=== PATIENT | female | born 1945 | race Caucasian/White ===

== ENCOUNTER 2020-04-22 09:32 | Observation (INO) | payer MEDICARE, OTHER ==
[~2020-04-22] VITALS: Ht 162.5 cm; Wt 56.7 kg
--- OUTSIDE RECORDS SUMMARY | 2020-04-22 09:37 | XMS REPORT | Continuity of Care Document ---
Author Organization Unknown Address Unknown Phone Unavailable Allergies There is no data. Medications There is no data. Problems There is no data. Procedures There is no data. Results Test Result Range VITAMIN D, 25-H - 08/03/19 10:20 VITAMIN D,25-OH,TOTAL,IA 75 ng/mL 30-10 0 Encounters ACCT No. Visit Date/Time Discharge Status Pt. Type Provider Facility Loc./Unit Complaint [id number] 01/06/2019 14:40:00 01/06/2019 23:59: 59 [facility] [id number] 08/03/2019 10:00:00 Document Registration
[2020-04-22] MEDS ORDERED: ONDANSETRON 4 MG (ZOFRAN) ORAL DISSOLVE TAB ONE (10:01)
[2020-04-22] MEDS ORDERED: NS IV 500 ML 500 ML IV ONE (10:23)
[2020-04-22 10:39] LABS: BASOPHILS % (AUTO) 0 % (0-10); EOSINOPHILS % (AUTO) 0 % (0-10); HEMATOCRIT 43 % (35-52); HEMOGLOBIN 14.1 G/DL (11.5-16.0); LYMPHOCYTES # (AUTO) 0.8 X 10^3 (1.0-4.0); LYMPHOCYTES % (AUTO) 9 % (12-44); MEAN CORPUSCULAR HEMOGLOBIN 29 PG (25-34); MEAN CORPUSCULAR HGB CONC 33 G/DL (32-36); MEAN CORPUSCULAR VOLUME 88 FL (80-99); MEAN PLATELET VOLUME 10.3 FL (7.4-10.4); MONOCYTES # (AUTO) 0.2 X 10^3 (0.0-1.0); MONOCYTES % (AUTO) 2 % (0-12); NEUTROPHILS # (AUTO) 8.4 X 10^3 (1.8-7.8); NEUTROPHILS % (AUTO) 89 % (42-75); PLATELET COUNT 316 10^3/uL (130-400); RED CELL DISTRIBUTION WIDTH 14.8 % (10.0-14.5); WHITE BLOOD COUNT 9.5 10^3/uL (4.3-11.0)
--- NOTE | 2020-04-22 10:45 | ED General ---
General Chief Complaint: Dizziness/Syncope Stated Complaint: DIZZY Nursing Triage Note: PT TO RM 5 WITH COMPLAINT OF DIZZINESS, NAUSEA, AND ROOM SPINNING THAT STARTED THIS MORNING. Nursing Sepsis Screen: No Definite Risk Source of Information: Patient Exam Limitations: No Limitations History of Present Illness Date Seen by Provider: April 22, 2020 Time Seen by Provider: 09:51 Initial Comments This 74-year-old woman presents to the emergency room with complaints of a vertiginous dizziness with nausea and vomiting 1 upon waking up this morning. Symptoms seem to be worse at home than they are now. She describes some slight disequilibrium. Symptoms do not seem to be worse with position changes or turning her head. She has never had symptoms like this in the past. She is notably hypertensive with systolic blood pressures in the 170s. She has been able to ambulate independently. She denies any focal neurologic deficits. She describes "just not feeling right". She denies any recent illnesses or symptoms such as cough, congestion, fever, etc. She has a history of traumatic brain injury and skull fracture about 9 years ago. Allergies and Home Medications Allergies Coded Allergies: No Known Drug Allergies (Unverified , 04/22/20) Patient Home Medication List Home Medication List Reviewed: Yes Review of Systems Review of Systems Constitutional: no symptoms reported EENTM: no symptoms reported Respiratory: no symptoms reported Cardiovascular: see HPI Gastrointestinal: see HPI Genitourinary: no symptoms reported : No Musculoskeletal: no symptoms reported Skin: no symptoms reported Psychiatric/Neurological: See HPI Hematologic/Lymphatic: No Symptoms Reported Immunological/Allergic: no symptoms reported Past Dzysurz-Wqyrzc-Ssnvsy Hx Past Med/Social Hx: Reviewed Nursing Past Med/Soc Hx Patient Social History Alcohol Use: Denies Use Recreational Drug Use: No Smoking Status: Never a Smoker Recent Foreign Travel: No Contact w/Someone Who Travel: No Recent Infectious Disease Expo: No Recent Hopitalizations: No Immunizations Up To Date Tetanus Booster (TDap): Unknown PED Vaccines UTD: Yes Seasonal Allergies Seasonal Allergies: No Past Medical History Surgeries: No Respiratory: No Cardiac: No Neurological: Yes Traumatic Brain Injury Genitourinary: No Gastrointestinal: No Musculoskeletal: No Endocrine: No HEENT: No Cancer: No Psychosocial: No Integumentary: No Blood Disorders: No Physical Exam Vital Signs Vital Signs - First Documented 04/22/20 09:47 Temp 36.4 Pulse 75 Resp 16 B/P (MAP) 171/94 (119) Pulse Ox 99 O2 Delivery Room Air Capillary Refill : Less Than 3 Seconds Height, Weight, BMI Height: '" Weight: lbs. oz. kg; 21.00 BMI Method: General Appearance: No Apparent Distress, WD/WN HEENT: PERRL/EOMI, TMs Normal, Normal ENT Inspection, Pharynx Normal Neck: Normal Inspection Respiratory: Lungs Clear, Normal Breath Sounds, No Accessory Muscle Use, No Respiratory Distress Cardiovascular: Regular Rate, Rhythm, No Edema, No Murmur Extremity: Normal Inspection, Non Tender, No Pedal Edema Neurologic/Psychiatric: Alert, Oriented x3, No Motor/Sensory Deficits, Normal Mood/Affect, lap winder II-XII Norm as Tested, Other (normal gait with ambulation. Reports some mild disequilibrium with ambulation. Normal finger to nose and heel to olea. Very slight nystagmus with left sided gaze. Bryce-Hallpike negative.) Skin: Normal Color, Warm/Dry Progress/Results/Core Measures Suspected Sepsis Recent Fever Within 48 Hours: No Infection Criteria Present: None New/Unexplained Altered Menta: No Sepsis Screen: No Definite Risk SIRS Temperature: Pulse: 75 Respiratory Rate: 16 Laboratory Tests 04/22/20 10:30: White Blood Count 9.5 Blood Pressure 171 /94 Mean: 119 Laboratory Tests 04/22/20 10:30: Creatinine 0.83, Platelet Count 316, Total Bilirubin 0.3 Results/Orders Lab Results Laboratory Tests Test 04/22/20 10:30 04/22/20 11:59 Range/Units White Blood Count 9.5 4.3-11.0 10^3/uL Red Blood Count 4.85 4.35-5.85 10^6/uL Hemoglobin 14.1 11.5-16.0 G/DL Hematocrit 43 35-52 % Mean Corpuscular Volume 88 80-99 FL Mean Corpuscular Hemoglobin 29 25-34 PG Mean Corpuscular Hemoglobin Concent 33 32-36 G/DL Red Cell Distribution Width 14.8 H 10.0-14.5 % Platelet Count 316 130-400 10^3/uL Mean Platelet Volume 10.3 7.4-10.4 FL Neutrophils (%) (Auto) 89 H 42-75 % Lymphocytes (%) (Auto) 9 L 12-44 % Monocytes (%) (Auto) 2 0-12 % Eosinophils (%) (Auto) 0 0-10 % Basophils (%) (Auto) 0 0-10 % Neutrophils # (Auto) 8.4 H 1.8-7.8 X 10^3 Lymphocytes # (Auto) 0.8 L 1.0-4.0 X 10^3 Monocytes # (Auto) 0.2 0.0-1.0 X 10^3 Eosinophils # (Auto) 0.0 0.0-0.3 10^3/uL Basophils # (Auto) 0.0 0.0-0.1 10^3/uL Neutrophils % (Manual) 85 % Lymphocytes % (Manual) 12 % Monocytes % (Manual) 2 % Eosinophils % (Manual) 0 % Basophils % (Manual) 1 % Band Neutrophils 0 % Blood Morphology Comment NORMAL Sodium Level 140 135-145 MMOL/L Potassium Level 4.0 3.6-5.0 MMOL/L Chloride Level 106 98-107 MMOL/L Carbon Dioxide Level 25 21-32 MMOL/L Anion Gap 9 5-14 MMOL/L Blood Urea Nitrogen 18 7-18 MG/DL Creatinine 0.83 0.60-1.30 MG/DL Estimat Glomerular Filtration Rate > 60 BUN/Creatinine Ratio 22 Glucose Level 129 H 70-105 MG/DL Calcium Level 9.8 8.5-10.1 MG/DL Corrected Calcium 9.5 8.5-10.1 MG/DL Magnesium Level 2.2 1.6-2.4 MG/DL Total Bilirubin 0.3 0.1-1.0 MG/DL Aspartate Amino Transf (AST/SGOT) 14 5-34 U/L Alanine Aminotransferase (ALT/SGPT) 13 0-55 U/L Alkaline Phosphatase 69 40-136 U/L Total Protein 6.8 6.4-8.2 GM/DL Albumin 4.4 3.2-4.5 GM/DL TSH Cord Testing 0.70 0.35-4.94 UIU/ML Urine Color YELLOW Urine Clarity CLOUDY Urine pH 7.0 5-9 Urine Specific [place] <=1.005 1.016-1.022 Urine Protein NEGATIVE NEGATIVE Urine Glucose (UA) TRACE H NEGATIVE Urine Ketones TRACE H NEGATIVE Urine Nitrite NEGATIVE NEGATIVE Urine Bilirubin NEGATIVE NEGATIVE Urine Urobilinogen 0.2 < = 1.0 MG/DL Urine Leukocyte Esterase TRACE H NEGATIVE Urine RBC (Auto) NEGATIVE NEGATIVE Urine RBC NONE /HPF Urine WBC NONE /HPF Urine Squamous Epithelial Cells NONE /HPF Urine Crystals NONE /LPF Urine Amorphous Sediment MOD JR URATES H /LPF Urine Bacteria NEGATIVE /HPF Urine Casts NONE /LPF Urine Mucus NEGATIVE /LPF Urine Culture Indicated NO My Orders Orders - AMADA CALIXTO MD Ondansetron Oral Dissolve Tab (Zofran (04/22/20 10:01) Cbc With Automated Diff (04/22/20 10:23) Comprehensive Metabolic Panel (04/22/20 10:23) Magnesium (04/22/20 10:23) Thyroid Analyzer (04/22/20 10:23) Ua Culture If Indicated (04/22/20 10:23) Ed Iv/Invasive Line Start (04/22/20 10:23) Ns Iv 500 Ml (Sodium Chloride 0.9%) (04/22/20 10:23) Ct Angio Head/Neck (04/22/20 10:23) Manual Differential (04/22/20 10:30) Iohexol Injection (Omnipaque 350 Mg/Ml 1 (04/22/20 11:45) Received Contrast (Hold Metformin- Contr (04/22/20 11:45) Ns (Ivpb) (Sodium Chloride 0.9% Ivpb Bag (04/22/20 11:45) Aspirin Tablet (Aspirin Tablet) (04/22/20 14:15) Medications Given in ED Current Medications Medications Dose Ordered Sig/Jaydon Route Start Time Stop Time Status Last Admin Dose Admin Iohexol 75 ml ONCE ONCE IV 04/22/20 11:45 04/22/20 11:46 DC 04/22/20 12:42 75 ML Ondansetron HCl 4 mg STK-MED ONCE .ROUTE 04/22/20 10:01 04/22/20 10:09 DC 04/22/20 10:12 8 MG Sodium Chloride 100 ml ONCE ONCE IV 04/22/20 11:45 04/22/20 11:46 DC 04/22/20 12:42 80 ML Sodium Chloride 500 ml @ 0 mls/hr Q0M ONCE IV 04/22/20 10:23 04/22/20 10:25 DC 04/22/20 10:40 0 MLS/HR Vital Signs/I&O 04/22/20 04/22/20 04/22/20 04/22/20 09:47 15:01 15:12 16:05 Temp 36.4 36.2 Pulse 75 75 72 Resp 16 13 16 B/P (MAP) 171/94 (119) 130/83 145/89 Pulse Ox 99 99 98 O2 Delivery Room Air Room Air Room Air Room Air 04/22/20 04/22/20 04/22/20 04/22/20 16:06 16:43 19:00 20:20 Temp 36.2 36.9 Pulse 72 70 82 75 Resp 16 16 B/P (MAP) 145/89 (107) 142/83 (102) Pulse Ox 98 99 O2 Delivery Room Air Room Air Capillary Refill : Less Than 3 Seconds Blood Pressure Mean: 119 Progress Note #1: Time: 10:45 Progress Note Westbrook Hallpike was negative. Patient did vomit 1 after Westbrook-Hallpike. With the presence of disequilibrium, vomiting, and hypertension, I suggested further workup with CT angiogram and blood work. Patient is agreeable. She received Zofran 8 mg sublingually after she became nauseated. Patient has been in sinus rhythm on the monitor. Progress Note #2: Progress Note Patient was treated with Zofran and IV fluids. Symptoms resolved. CT angiogram was obtained. There is a small 5 mm focus of decreased density. This was discussed with Dr. Weaver. Location of this decreased density did not seem to correlate with patient's symptoms. 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 Dr. Weaver and I discussed admission for observation versus discharge home. Patient's desire was to be admitted and observed as she [place] on [place]. Dr. Weaver believed admission and obtaining MRI was an appropriate option. Dysphagia screen was performed and aspirin was given. Patient remained free of any focal neurologic deficits during her stay. Blood pressure improved without any particular treatment. Patient remained in sinus rhythm on the monitor. Diagnostic Imaging Diagonstic Imaging: CT Plain Films/CT/US/NM/MRI: other (angiogram head and neck) Comments CT angiogram head and neck viewed by me and report reviewed. See report below: NAME: MICHAEL VAZQUEZ [facility] REC#: [id number] PT STATUS: REG ER : 1945 PHYSICIAN: AMADA CALIXTO MD ADMIT DATE: 04/22/20/ER Draft Date of Exam:04/22/20 CT ANGIO HEAD/NECK PROCEDURE: CT angiography of the head and CT angiography of the neck with and without contrast. TECHNIQUE: Contiguous noncontrast images were obtained from the skull base through the vertex. After intravenous contrast administration, helical CT angiography of the neck was performed. Source data was reformatted into 3D MIP projections. Delayed post contrast acquisition was also obtained. Auto Exposure Controls were utilized during the CT exam to meet ALARA standards for radiation dose reduction. INDICATION: Dizziness, nausea COMPARISON: None available FINDINGS: No intracranial hemorrhage. Small 5 mm hypodensity is noted within the high right parietal lobe. Focal hypodensity is identified associated with the anterior aspect of the left frontal lobe with associated volume loss. No midline shift, herniation, hydrocephalus, or extra-axial fluid collection. The orbits are unremarkable. 1.2 cm sclerotic focus within the left frontal bone. The paranasal sinuses are clear. No acute calvarial fracture. No enhancing intracranial mass lesion. The orbits are unremarkable. Peripharyngeal fat is symmetric and well-maintained. The visualized salivary glands are unremarkable. Muscles of mastication are unremarkable. Effacement of the left piriform sinuses noted, though no discrete soft tissue mass lesion is noted at this location. The thyroid gland is unremarkable. No significant adenopathy within the neck. No apical pneumothorax. Biapical pleural parenchymal scarring. Scattered vascular calcifications are present. A three-vessel aortic arch is present. The large arterial structures of the head and neck are essentially unremarkable without evidence of obstruction, hemodynamically significant stenosis, dissection, aneurysm, or pseudoaneurysm. Large dural venous sinuses remain patent. No acute osseous abnormality with scattered osseous degenerative changes present. IMPRESSION: Large arterial structures within the head and neck are essentially unremarkable. Tiny 5 mm hypodensity within the high right parietal lobe, which may relate to a tiny age-indeterminate lacunar infarction. 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 If there remains clinical concern for recent infarction, then further evaluation with MRI of the brain would be recommended. 1.2 cm sclerotic lesion within the left frontal bone. This is nonspecific though favored related to a bone island. Dictated on workstation # [id number] Dict: 04/22/20 1152 Trans: 04/22/20 1210 [facility] [id number] Interpreted by: ROSITA SOLORZANO MD Departure Impression Primary Impression: Dizziness Additional Impressions: Disequilibrium Hypertension Qualified Codes: I10 - Essential (primary) hypertension Disposition: ADMITTED INPATIENT Condition: Improved Departure-Patient Inst. Referrals: NATALIE CARVALHO MD (PCP/Family) Primary Care Physician AMADA CALIXTO MD April 22, 2020 10:45
[2020-04-22 10:48] LABS: ALBUMIN 4.4 GM/DL (3.2-4.5); CHLORIDE 106 MMOL/L (98-107); SODIUM 140 MMOL/L (135-145)
[2020-04-22 10:50] LABS: CALCIUM 9.8 MG/DL (8.5-10.1)
[2020-04-22 10:51] LABS: GLUCOSE 129 MG/DL (70-105); TOTAL PROTEIN 6.8 GM/DL (6.4-8.2)
[2020-04-22 10:52] LABS: CARBON DIOXIDE 25 MMOL/L (21-32)
[2020-04-22 10:53] LABS: BILIRUBIN,TOTAL 0.3 MG/DL (0.1-1.0)
[2020-04-22 10:54] LABS: ALKALINE PHOSPHATASE 69 U/L (40-136); CREATININE SERUM 0.83 MG/DL (0.60-1.30); GFR ESTIMATED > 60
[2020-04-22 10:55] LABS: BUN/CREATININE RATIO 22
[2020-04-22 10:57] LABS: ALANINE AMINOTRANSFERASE 13 U/L (0-55); MAGNESIUM 2.2 MG/DL (1.6-2.4)
[2020-04-22 11:07] LABS: BAND NEUTROPHILS 0 %; BASOPHILS % (MANUAL) 1 %; EOSINOPHILS % (MANUAL) 0 %; LYMPHOCYTES % (MANUAL) 12 %; MONOCYTES % (MANUAL) 2 %; NEUTROPHILS % (MANUAL) 85 %
[2020-04-22 11:08] LABS: RBC MORPH NORMAL
[2020-04-22] MEDS ORDERED: IOHEXOL 350 MG/ML 100 ML (OMNIPAQUE 350) VIAL IV ONE (11:45)
[2020-04-22] MEDS ORDERED: NS 100 ML (IVPB) BAG IV ONE (11:45)
[2020-04-22] MEDS ORDERED: HOLD METFORMIN - RECEIVED CONTRAST 20 ML VIAL IV SCH (11:45)
[2020-04-22 12:06] LABS: BILIRUBIN,URINE NEGATIVE (NEGATIVE); CLARITY,URINE CLOUDY; COLOR,URINE YELLOW; GLUCOSE, URINE (UA) TRACE (NEGATIVE); KETONES,URINE TRACE (NEGATIVE); LEUKOCYTE ESTERASE ,URINE TRACE (NEGATIVE); NITRITE,URINE NEGATIVE (NEGATIVE); PROTEIN,URINE NEGATIVE (NEGATIVE)
--- NOTE | 2020-04-22 12:12 | Diagnostic Imaging Report ---
PROCEDURE: CT angiography of the head and CT angiography of the neck with and without contrast. TECHNIQUE: Contiguous noncontrast images were obtained from the skull base through the vertex. After intravenous contrast administration, helical CT angiography of the neck was performed. Source data was reformatted into 3D MIP projections. Delayed post contrast acquisition was also obtained. Auto Exposure Controls were utilized during the CT exam to meet ALARA standards for radiation dose reduction. INDICATION: Dizziness, nausea COMPARISON: None available FINDINGS: No intracranial hemorrhage. Small 5 mm hypodensity is noted within the high right parietal lobe. Focal hypodensity is identified associated with the anterior aspect of the left frontal lobe with associated volume loss. No midline shift, herniation, hydrocephalus, or extra-axial fluid collection. The orbits are unremarkable. 1.2 cm sclerotic focus within the left frontal bone. The paranasal sinuses are clear. No acute calvarial fracture. No enhancing intracranial mass lesion. The orbits are unremarkable. Peripharyngeal fat is symmetric and well-maintained. The visualized salivary glands are unremarkable. Muscles of mastication are unremarkable. Effacement of the left piriform sinuses noted, though no discrete soft tissue mass lesion is noted at this location. The thyroid gland is unremarkable. No significant adenopathy within the neck. No apical pneumothorax. Biapical pleural parenchymal scarring. Scattered vascular calcifications are present. A three-vessel aortic arch is present. The large arterial structures of the head and neck are essentially unremarkable without evidence of obstruction, hemodynamically significant stenosis, dissection, aneurysm, or pseudoaneurysm. Large dural venous sinuses remain patent. No acute osseous abnormality with scattered osseous degenerative changes present. IMPRESSION: Large arterial structures within the head and neck are essentially unremarkable. Tiny 5 mm hypodensity within the high right parietal lobe, which may relate to a tiny age-indeterminate lacunar infarction. 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 If there remains clinical concern for recent infarction, then further evaluation with MRI of the brain would be recommended. 1.2 cm sclerotic lesion within the left frontal bone. This is nonspecific though favored related to a bone island. Dictated by: Dictated on workstation # [id number]
[2020-04-22 12:13] LABS: BACTERIA,URINE NEGATIVE /HPF
[2020-04-22 12:14] LABS: AMORPHOUS SEDIMENT,UR MOD AMOR URATES /LPF
[2020-04-22] MEDS ORDERED: ASPIRIN 325 MG (5 GR) TABLET PO ONE (14:15)
--- OUTSIDE RECORDS SUMMARY | 2020-04-22 14:47 | XMS REPORT | Continuity of Care Document ---
Author Organization Unknown Address Unknown Phone Unavailable Allergies There is no data. Medications There is no data. Problems There is no data. Procedures There is no data. Results Test Result Range VITAMIN D, 25-H - 08/03/19 10:20 VITAMIN D,25-OH,TOTAL,IA 75 ng/mL 30-10 0 Encounters ACCT No. Visit Date/Time Discharge Status Pt. Type Provider Facility Loc./Unit Complaint [id number] 01/06/2019 14:40:00 01/06/2019 23:59: 59 [facility] [id number] 08/03/2019 10:00:00 Document Registration
[2020-04-22] MEDS ORDERED: MECLIZINE 25 MG (ANTIVERT) TAB PO PRN (15:30)
[2020-04-22] MEDS ORDERED: ONDANSETRON 4 MG/2 ML (SDV) Z0FRAN IV PRN (15:30)
[2020-04-22] MEDS ORDERED: MELATONIN 3 MG TABLET PO PRN (15:45)
[2020-04-22] MEDS ORDERED: LOPERAMIDE 2 MG (IMODIUM) TABLET PO PRN (15:45)
[2020-04-22] MEDS ORDERED: HYDROcodone/APAP 5 MG/325 MG (LORTAB) TAB PO PRN (15:45)
[2020-04-22] MEDS ORDERED: guaiFENesin/CODEINE (ROBITUSSIN AC) 10ML UDC PO PRN (15:45)
[2020-04-22] MEDS ORDERED: ONDANSETRON 4 MG (ZOFRAN) ORAL DISSOLVE TAB PO PRN (15:45)
[2020-04-22] MEDS ORDERED: BISACODYL 10 MG SUPP (DULCOLAX) PR PRN (15:45)
[2020-04-22] MEDS ORDERED: DOCUSATE SODIUM 100 MG (COLACE) CAP PO PRN (15:45)
[2020-04-22] MEDS ORDERED: diphenhydrAMINE 25 MG TAB (BENADRYL) PO PRN (15:45)
[2020-04-22] MEDS ORDERED: ACETAMINOPHEN 500 MG TAB (TYLENOL) PO PRN (15:45)
[2020-04-22] MEDS ORDERED: ONDANSETRON 4 MG/2 ML (SDV) Z0FRAN IVP PRN (15:45)
[2020-04-22] MEDS ORDERED: CALCIUM CARBONATE 500 MG (TUMS) TAB.CHEW PO PRN (15:45)
[2020-04-22] MEDS ORDERED: ALPRAZolam 0.25 MG (XANAX) TAB PO PRN (15:45)
[2020-04-22] MEDS ORDERED: ENOXAPARIN 40 MG/0.4 ML (LOVENOX) SYR SC SCH (16:00)
[2020-04-22 16:05] VITALS: BP 145/89
[2020-04-22 16:06] VITALS: BP 145/89
--- NOTE | 2020-04-22 18:47 | History & Physical-Hospitalist ---
History of Present Illness HPI/Chief Complaint CC: Vertigo with abnormal CT brain HPI: This is a 74yoWF clinic patient of Dr Stern who is very active and lives at home independently and walks 3 miles a day who presents to the [facility] ER with complaints of severe vertigo and headache. Apparently she had an acute worsening of her symptoms which prompted the ER visit and stroke protocol was followed which resulted in abnormalities assessed and given the symptoms and previous TIA's she reports from years ago in addition to the CHI in 2010 when she fell on the back of her head after falling off a ladder the decision was made to admit to obtain MRI brain and further risk stratify. Her son is at the bedside and all questions were answered. Dr Scott will see the patient in consultation and ECHO along with lipid panel and carotid USG to be done in am. Source: patient, family Exam Limitations: no limitations Date Seen 04/22/20 Time Seen by a Provider: 18:00 Attending Physician Veronica Marcum,Froylan FORD Referring Physician Date of Admission April 22, 2020 at 13:25 Home Medications & Allergies Home Medications Reviewed patient Home Medication Reconciliation performed by pharmacy medication reconciliations mechanical laboratory technician and/or nursing. Patients Allergies have been reviewed. Allergies Allergies Coded Allergies No Known Drug Allergies (Unverified04/22/20) Past Xfnvapo-Zsmenp-Aelphb Hx Past Med/Social Hx: Reviewed Nursing Past Med/Soc Hx, Reviewed and Corrections made Patient Social History Marrital Status: single Employed/Student: retired ([employer]) Alcohol Use: Denies Use Recreational Drug Use: No Smoking Status: Never a Smoker Recent Foreign Travel: No Contact w/other who traveled: No Recent Hopitalizations: No Recent Infectious Disease Expo: No Immunizations Up To Date Tetanus Booster (TDap): Unknown Pediatric: Yes Date of Pneumonia Vaccine: April 22, 2016 Seasonal Allergies Seasonal Allergies: No Past Medical History Neurological: TIA (52 years ago and 35 years ago both under stress of childbirth and father's illness respectively), Traumatic Brain Injury (2010) History of Blood Disorders: No Review of Systems Constitutional: see HPI, dizziness, malaise, weakness Physical Exam Physical Exam Vital Signs Vital Signs - First Documented 04/22/20 09:47 Temp 36.4 Pulse 75 Resp 16 B/P (MAP) 171/94 (119) Pulse Ox 99 O2 Delivery Room Air Capillary Refill : Less Than 3 Seconds Height, Weight, BMI Height: '" Weight: lbs. oz. kg; 21.47 BMI Method: General Appearance: No Apparent Distress, WD/WN, Anxious Eyes: Right Eye Normal Inspection, Right Eye PERRL HEENT: PERRL/EOMI, TMs Normal, Normal ENT Inspection, Pharynx Normal, Moist Mucous Membranes Neck: Full Range of Motion, Normal Inspection, Non Tender Respiratory: Chest Non Tender, Lungs Clear, Normal Breath Sounds, No Accessory Muscle Use, No Respiratory Distress Cardiovascular: Regular Rate, Rhythm, No Edema, No Gallop, No JVD, No Murmur, Normal Peripheral Pulses Gastrointestinal: Normal Bowel Sounds, No Organomegaly, No Pulsatile Mass, Non Tender, Soft Back: Normal Inspection, No CVA Tenderness, No Vertebral Tenderness Extremity: Normal Capillary Refill, Normal Inspection, Normal Range of Motion, Non Tender, No Calf Tenderness, No Pedal Edema Neurologic/Psychiatric: Alert, Oriented x3, No Motor/Sensory Deficits, Normal Mood/Affect Skin: Normal Color, Warm/Dry Lymphatic: No Adenopathy Results Results/Procedures Labs Laboratory Tests 04/22/20 10:30 Patient resulted labs reviewed. Assessment/Plan Admission Diagnosis Assessment: Vertigo/dizziness severe Abnormal CT scan brain requiring MRI tomorrow TIA x 2 in past maintained on ASA since that time FH CAD/CVA CHI 2010 feel off ladder hit back of head Plan: Monitor BP MRI tomorrow Carotid USG and lipid panel and ECHO tomorrow Telemetry Dr Scott consultation PT OT Admission Status: Observation Diagnosis/Problems Diagnosis/Problems (1) Dizziness Status: Acute (2) Abnormal brain CT (3) History of closed head injury (4) Family history of coronary artery disease (5) Family history of CVA (6) Hx TIA/stroke w/o resid (7) Hypertension Status: Acute Qualifiers: Hypertension type: unspecified Qualified Codes: I10 - Essential (primary) hypertension Clinical Quality Measures DVT/VTE Risk/Contraindication: Risk Factor Score Per Nursin RFS Level Per Nursing on Admit: 2=Moderate VERONICA MARCUM DO April 22, 2020 18:47
[2020-04-22] MEDS: SENNA W/DOCUSATE (SENOKOT S) TABLET PO SCH (20:01)
[2020-04-22] MEDS: polyethylene glycoL POWDER 17 GM (MIRALAX) PACK PO SCH (20:01)
[2020-04-22 20:20] VITALS: BP 142/83
[2020-04-22 23:32] VITALS: BP 134/75
[2020-04-23 04:00] VITALS: BP 138/78
[2020-04-23 05:16] LABS: BASOPHILS % (AUTO) 1 % (0-10); EOSINOPHILS # (AUTO) 0.1 10^3/uL (0.0-0.3); EOSINOPHILS % (AUTO) 2 % (0-10); HEMATOCRIT 40 % (35-52); HEMOGLOBIN 13.1 G/DL (11.5-16.0); LYMPHOCYTES # (AUTO) 1.7 X 10^3 (1.0-4.0); LYMPHOCYTES % (AUTO) 32 % (12-44); MEAN CORPUSCULAR HEMOGLOBIN 29 PG (25-34); MEAN CORPUSCULAR HGB CONC 33 G/DL (32-36); MEAN CORPUSCULAR VOLUME 88 FL (80-99); MEAN PLATELET VOLUME 10.3 FL (7.4-10.4); MONOCYTES # (AUTO) 0.4 X 10^3 (0.0-1.0); MONOCYTES % (AUTO) 9 % (0-12); NEUTROPHILS % (AUTO) 57 % (42-75); PLATELET COUNT 304 10^3/uL (130-400); RED CELL DISTRIBUTION WIDTH 14.9 % (10.0-14.5); WHITE BLOOD COUNT 5.2 10^3/uL (4.3-11.0)
[2020-04-23 05:40] LABS: ALBUMIN 3.8 GM/DL (3.2-4.5); CHLORIDE 109 MMOL/L (98-107); POTASSIUM 3.9 MMOL/L (3.6-5.0); SODIUM 141 MMOL/L (135-145)
[2020-04-23 05:41] LABS: CALCIUM 9.5 MG/DL (8.5-10.1)
[2020-04-23 05:42] LABS: GLUCOSE 92 MG/DL (70-105); TOTAL PROTEIN 5.9 GM/DL (6.4-8.2); TRIGLYCERIDES 80 MG/DL (<150); VLDL CHOLESTEROL 16 MG/DL (5-40)
[2020-04-23 05:43] LABS: CARBON DIOXIDE 23 MMOL/L (21-32)
[2020-04-23 05:44] LABS: BILIRUBIN,TOTAL 0.4 MG/DL (0.1-1.0)
[2020-04-23 05:46] LABS: ALKALINE PHOSPHATASE 60 U/L (40-136); CREATININE SERUM 0.76 MG/DL (0.60-1.30); GFR ESTIMATED > 60
[2020-04-23 05:47] LABS: BUN/CREATININE RATIO 18; CHOLESTEROL 232 MG/DL (< 200)
[2020-04-23 05:48] LABS: HDL CHOLESTEROL 79 MG/DL (40-60)
[2020-04-23 05:49] LABS: ALANINE AMINOTRANSFERASE 11 U/L (0-55)
[2020-04-23 08:00] VITALS: BP 149/88
--- NOTE | 2020-04-23 08:33 | Diagnostic Imaging Report ---
PROCEDURE: US carotid duplex, bilateral. TECHNIQUE: Multiple real-time grayscale images were obtained over the carotid arteries in various projections, bilaterally. Additional spectral analysis and color Doppler duplex images were also obtained. INDICATION: Dizziness, hypertension There are no prior carotid Doppler examinations available for comparison. The CTA head and neck exam performed on 04/22/2020 failed to show any sign of a hemodynamically significant stenosis of the common or internal carotid arteries. On this exam there is a mild amount of hard and soft plaque formation of both carotid bifurcations. Flow velocities failed to show any sign of a hemodynamically significant stenosis of the common or internal carotid systems however. The left vertebral artery was identified and there was antegrade flow. The right vertebral artery could not be visualized however. The right vertebral artery was evident on the CTA head and neck exam and appear to be within normal limits. IMPRESSION: 1. There is no evidence for hemodynamically significant stenosis of the common or internal carotid arteries. 2. The right vertebral artery was not visualized but it did appear to be patent on the CT head and neck exam. There is antegrade flow in the left vertebral artery. Parameters based on the consensus panel Paris-Scale and Doppler ultrasound criteria published September 2003, Radiology, Volume 229. DOPPLER (peak systolic velocity M/S Right Left CCA .76 .72 ICA Proximal .44 .71 ICA Mid .85 .76 ICA Distal .47 .83 RATIO 1.08 1.15 ECA 1.07 0.60 VERT NOT SEEN .55 Dictated by: Dictated on workstation # [id number]
[2020-04-23] MEDS ORDERED: ASPIRIN 325 MG (5 GR) TABLET PO SCH (09:00)
[2020-04-23] MEDS: polyethylene glycoL POWDER 17 GM (MIRALAX) PACK PO SCH (09:05)
[2020-04-23] MEDS: SENNA W/DOCUSATE (SENOKOT S) TABLET PO SCH (09:05)
--- NOTE | 2020-04-23 09:40 | Occ Therapy Progress Note ---
Therapy Progress Note Pt orders received and chart reviewed. OT attempted evaluation at 924 but pt was currently at a procedure. OT will attempt again at next available time. PASCUAL NEIL OT Apr 23, 2020 09:40
--- NOTE | 2020-04-23 09:50 | NUR ---
CALLED DR DOMINGO WITH CONSULT
[2020-04-23] MEDS ORDERED: ATOR40TA PO (09:57)
[2020-04-23] MEDS ORDERED: ASPI-808 PO (09:57)
--- NOTE | 2020-04-23 09:57 | Discharge Summary ---
Discharge Summary Hospital Course Was the Problem List Reviewed?: Yes Problems/Dx: (1) Dizziness Status: Acute (2) Abnormal brain CT (3) History of closed head injury (4) Family history of coronary artery disease (5) Family history of CVA (6) Hx TIA/stroke w/o resid (7) Hypertension Status: Acute Qualifiers: Qualified Codes: I10 - Essential (primary) hypertension Hospital Course Date of Admission: April 22, 2020 at 13:25 Admission Diagnosis : Family Physician/Provider: Froylan Stern MD Date of Discharge: 04/23/20 Discharge Diagnosis: dizziness, abnormal CT scan and confirmed MRI brain with scarring from [facility] Hospital Course: Hospital Course: Pt had a brief hospital course after she was admitted for abnormal CT scan and severe vertigo highly suspicious for some sort of stroke process. Dr. Scott was consulted, echocardiogram obtained, telemetry maintained, and Aspirin treated any type of neurological deficit but she had no deficits at the time of DC. PT and OT worked with her and no sign of any need for any rehab and pt was placed on Statin therapy, Aspirin therapy, and will have close follow up with Dr. Stern on April 25 at 10:45. Labs and Pending Lab Test: Laboratory Tests 04/22/20 10:30: White Blood Count 9.5, Red Blood Count 4.85, Hemoglobin 14.1, Hematocrit 43, Mean Corpuscular Volume 88, Mean Corpuscular Hemoglobin 29, Mean Corpuscular H emoglobin Concent 33, Red Cell Distribution Width 14.8H, Platelet Count 316, Mean Platelet Volume 10.3, Neutrophils (%) (Auto) 89H, Lymphocytes (%) (Auto) 9L , Monocytes (%) (Auto) 2, Eosinophils (%) (Auto) 0, Basophils (%) (Auto) 0, Neutrophils # (Auto) 8.4H, Lymphocytes # (Auto) 0.8L, Monocytes # (Auto) 0.2, Eosinophils # (Auto) 0.0, Basophils # (Auto) 0.0, Neutrophils % (Manual) 85, Lymphocytes % (Manual) 12, Monocytes % (Manual) 2, Eosinophils % (Manual) 0, Basophils % (Manual) 1, Band Neutrophils 0, Blood Morphology Comment NORMAL, Sodium Level 140, Potassium Level 4.0, Chloride Level 106, Carbon Dioxide Level 25, Anion Gap 9, Blood Urea Nitrogen 18, Creatinine 0.83, Estimat Glomerular Filtration Rate > 60, BUN/Creatinine Ratio 22, Glucose Level 129H, Calcium Level 9.8, Corrected Calcium 9.5, Magnesium Level 2.2, Total Bilirubin 0.3, Aspartate Amino Transf (AST/SGOT) 14, Alanine Aminotransferase (ALT/SGPT) 13, Alkaline Phosphatase 69, Total Protein 6.8, Albumin 4.4, TSH [place] Testing 0.70 04/22/20 11:59: Urine Color YELLOW, Urine Clarity CLOUDY, Urine pH 7.0, Urine Specific [place] <=1.005, Urine Protein NEGATIVE, Urine Glucose (UA) TRACEH, Urine Ketones TRACEH , Urine Nitrite NEGATIVE, Urine Bilirubin NEGATIVE, Urine Urobilinogen 0.2, Urine Leukocyte Esterase TRACEH, Urine RBC (Auto) NEGATIVE, Urine RBC NONE, Urine WBC NONE, Urine Squamous Epithelial Cells NONE, Urine Crystals NONE, Urine Amorphous Sediment MOD JR URATESH, Urine Bacteria NEGATIVE, Urine Casts NONE, Urine Mucus NEGATIVE, Urine Culture Indicated NO 04/23/20 04:35: White Blood Count 5.2, Red Blood Count 4.59, Hemoglobin 13.1, Hematocrit 40, Mean Corpuscular Volume 88, Mean Corpuscular Hemoglobin 29, Mean Corpuscular Hemoglobin Concent 33, Red Cell Distribution Width 14.9H, Platelet Count 304, Mean Platelet Volume 10.3, Neutrophils (%) (Auto) 57, Lymphocytes (%) (Auto) 32, Monocytes (%) (Auto) 9, Eosinophils (%) (Auto) 2, Basophils (%) (Auto) 1, Neutrophils # (Auto) 3.0, Lymphocytes # (Auto) 1.7, Monocytes # (Auto) 0.4, Eosinophils # (Auto) 0.1, Basophils # (Auto) 0.0, Sodium Level 141, Potassium Level 3.9, Chloride Level 109H, Carbon Dioxide Level 23, Anion Gap 9, Blood Urea Nitrogen 14, Creatinine 0.76, Estimat Glomerular Filtration Rate > 60, BUN/Creatinine Ratio 18, Glucose Level 92, Calcium Level 9.5, Corrected Calcium 9.7, Total Bilirubin 0.4, Aspartate Amino Transf (AST/SGOT) 13, Alanine Aminotransferase (ALT/SGPT) 11, Alkaline Phosphatase 60, Total Protein 5.9L, Albumin 3.8, Triglycerides Level 80, Cholesterol Level 232H, LDL Cholesterol Direct 140H, VLDL Cholesterol 16, HDL Cholesterol 79H Assessment/Pt Instructions Dr Stern 04/25/20 1045am Discharge Planning: <30 minutes discharge planning Discharge Instructions Discharge Diet: No Restrictions Discharge Physical Examination Vital Signs Vital Signs Date Time Temp Pulse Resp B/P (MAP) Pulse Ox O2 Delivery O2 Flow Rate FiO2 04/23/20 08:00 36.0 75 18 149/88 (108) 97 Room Air General Appearance: No Apparent Distress, WD/WN, Chronically ill Allergies: Coded Allergies: No Known Drug Allergies (Unverified , 04/22/20) Discharge Summary Date of Admission April 22, 2020 at 13:25 Date of Discharge Discharge Date: Apr 23, 2020 Admission Diagnosis Assessment: Vertigo/dizziness severe Abnormal CT scan brain requiring MRI tomorrow TIA x 2 in past maintained on ASA since that time FH CAD/CVA [facility] feel off ladder hit back of head Plan: Monitor BP MRI tomorrow Carotid USG and lipid panel and ECHO tomorrow Telemetry Dr Scott consultation PT OT Discharge Diagnosis (1) Dizziness Status: Acute (2) Abnormal brain CT (3) History of closed head injury (4) Family history of coronary artery disease (5) Family history of CVA (6) Hx TIA/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
--- NOTE | 2020-04-23 10:08 | Diagnostic Imaging Report ---
PROCEDURE: MR imaging of the brain without contrast. TECHNIQUE: Multiplanar, multisequence MR imaging of the brain was performed without contrast. DATE: April 23, 2020. COMPARISON: CT angiography head and neck April 22, 2020. HISTORY: 74-year-old female, dizziness, nausea. Disequilibrium. FINDINGS: There is no restricted diffusion. There are no areas of abnormal intracranial susceptibility. There is encephalomalacia in the anterior aspect of the left frontal lobe with underlying gliosis. There is no hydrocephalus. There is no generalized cerebral volume loss. There is no abnormal extra axial fluid collection. There is no acute intracranial hemorrhage. There is no mass effect or midline shift. There is a small focus of encephalomalacia in the anterior and medial aspect of the right frontal lobe with adjacent gliosis. There are small foci of increased T2 and FLAIR signal in the periventricular white matter which most likely reflect very mild chronic small vessel ischemic disease. There is preservation of the normal intracranial flow voids. The visualized portions of the paranasal sinuses, mastoid air cells, and middle ears are well aerated. There is a low signal lesion involving the left frontal bone on axial T1 sequence image 19. There is no adjacent abnormal signal. This most likely reflects a benign lesion. IMPRESSION: 1. No evidence of an acute intracranial abnormality. 2. Encephalomalacia in the anterior aspects of the frontal lobes bilaterally, left greater than right, with underlying gliosis. This is of uncertain exact etiology although post traumatic etiology is considered considering the location. 3. Minimal changes of chronic small vessel ischemic disease. 4. Probable benign lesion involving the left frontal bone of the skull. Dictated by: Dictated on workstation # [id number]
--- NOTE | 2020-04-23 10:40 | Physical Therapy Evaluation ---
PT Evaluation-General Medical Diagnosis Admission Date April 22, 2020 at 13:25 Medical Diagnosis: dizziness/HTN Onset Date: April 22, 2020 Therapy Diagnosis Therapy Diagnosis: debility Precautions Precautions/Isolations: Standard Precautions Referral Physician: Leena Reason for Referral: Evaluation/Treatment Medical History Pertinent Medical History: HTN, TBI Current History ER with dizziness/N&V Reviewed History: Yes Social History Home: Single Level Current Living Status: Alone Prior Prior Level of Function SCALE: Activities may be completed with or without assistive devices. 3-Zzmfoocgaw-vglvvvm completes the activity by him/herself with no assistance from a helper. 5-Set-up or Clean-up Assistance-helper sets up or cleans up; patient completes activity. [place] assists only prior to or following the activity. 4-Supervision or Touching Assistance-helper provides verbal cues and/or touching/steadying and/or contact guard assistance as patient completes activity. Assistance may be provided throughout the activity or intermittently. 3-Partial/Moderate Assistance-helper does LESS THAN HALF the effort. [place] lifts, holds or supports trunk or limbs, but provides less than half the effort. 2-Substantial/Maximal Assistance-helper does MORE THAN HALF the effort. [place] lifts or holds trunk or limbs and provides more than half the effort. 1-Agnahrkej-pnebxg does ALL the effort. Patient does none of the effort to complete the activity. Or, the assistance of 2 or more helpers is required for the patient to complete the activity. If activity was not attempted, code reason: 7-Patient Refused. 9-Not Applicable-not attempted and the patient did not perform the activity before the current illness, exacerbation or injury. 10-Not Attempted due to Environmental Limitations-(lack of equipment, weather restraints, etc.). 88-Not Attempted due to Medical Conditions or Safety Concerns. Bed Mobility: 6 Transfers (B,C,W/C): 6 Gait: 6 Stairs: 6 Indoor Mobility (Ambulation): Independent Stairs: Independent Prior Devices Use: None PT Evaluation-Current Subjective Patient agrees to PT. No c/o. Pain Numeric Pain Scale: 0-No Pain Location: No Pain Reported Objective Patient Orientation: Normal For Age ROM/Strength ROM Lower Extremities bilateral LE WFL Strength Lower Extremities 4+/5 grossly bilateral LE Integumentary/Posture Integumentary refer to nursing notes Bowel Incontinence: No Bladder Incontinence: No Posture WFL Neuromuscular (Tone, Coordination, Reflexes) grossly intact Sensory Vision: Wears Glasses Hearing: Functional Sensation Right Lower Extremit: Intact Sensation Left Lower Extremity: Intact Transfers Roll Left to Right (QC): 6 Sit to Lying (QC): 6 Lying to Sitting/Side of Bed(Q: 6 Sit to Stand (QC): 6 Gait Does the Patient Walk?: Yes Mode of Locomotion: Walk Anticipated Mode of Locomotion: Walk Walk 10 feet (QC): 6 Walk 50 ft with 2 Turns(QC): 6 Walk 150 ft (QC): 6 Distance: 400' Gait Assistive Device: None Comments/Gait Description safe and functional with no deviation Balance Sitting Static: Normal Sitting Dynamic: Normal Standing Static: Normal Standing Dynamic: Normal Assessment/Needs 74 y.o. female, is currently at [facility] with all gross motor skills and does not require skilled therapy intervention. Rehab Potential: Good PT Plan Treatment/Plan Treatment Plan: Discontinue PT, goals met Treatment Duration: Apr 23, 2020 Frequency: 1 time per week Estimated Hrs Per Day: .25 hour per day Patient and/or Family Agrees t: Yes Time/GCodes Time In: 950 Time Out: 959 Total Billed Treatment Time: 9 Total Billed Treatment 1 visit EVLowC 9 min DAWOOD BETANCOURT PT Apr 23, 2020 10:40
--- NOTE | 2020-04-23 11:05 | Consultation-Cardiology ---
HPI-Cardiology Cardiology Consultation Date of Consultation 04/23/20 Date of Admission Time Seen by Provider: 18:00 Indication: dizziness HPI Patient is a 74 y/o female with no significant PMH, presented to the ER with complaints of dizziness. Describes as spinning sensation, denies any slurred speech, one sided weakness. Associated vomiting x 2. Patient reports she is now feeling better. Denies any chest pain or dyspnea. Reports infrequent palpitations. Home Medications & Allergies Allergies: Coded Allergies: No Known Drug Allergies (Unverified , 04/22/20) Home Medication List Reviewed: Yes TSD-Xnmbcc-Ktzske Hx Patient Social History Marital Status: single Employed/Student: retired ([employer]) Alcohol Use: Denies Use Recreational Drug Use: No Smoking Status: Never a Smoker Recent Foreign Travel: No Recent Infectious Disease Expo: No Recent Hopitalizations: No Immunizations Up To Date Tetanus Booster (TDap): Unknown Date of Pneumonia Vaccine: April 22, 2016 Past Medical History HLP Family Medical History Significant Family History: No Pertinent Family Hx Family History: CVA Coronary artery disease Review of Systems-General Review of Systems Constitutional: no symptoms reported, see HPI, malaise EENTM: no symptoms reported; No ear pain, No blurred vision, No double vision, No vision loss, No epistaxis Respiratory: no symptoms reported, see HPI; No cough, No dyspnea on exertion Cardiovascular: see HPI, other (dizziness) Gastrointestinal: see HPI Genitourinary: no symptoms reported : No Musculoskeletal: no symptoms reported Skin: no symptoms reported Psychiatric/Neurological: See HPI Reviewed Test Results Reviewed Test Results Lab Laboratory Tests 04/22/20 11:59: Urine Color YELLOW, Urine Clarity CLOUDY, Urine pH 7.0, Urine Specific [place] <=1.005, Urine Protein NEGATIVE, Urine Glucose (UA) TRACEH, Urine Ketones TRACEH , Urine Nitrite NEGATIVE, Urine Bilirubin NEGATIVE, Urine Urobilinogen 0.2, Urine Leukocyte Esterase TRACEH, Urine RBC (Auto) NEGATIVE, Urine RBC NONE, Urine WBC NONE, Urine Squamous Epithelial Cells NONE, Urine Crystals NONE, Urine Amorphous Sediment MOD JR URATESH, Urine Bacteria NEGATIVE, Urine Casts NONE, Urine Mucus NEGATIVE, Urine Culture Indicated NO 04/23/20 04:35: White Blood Count 5.2, Red Blood Count 4.59, Hemoglobin 13.1, Hematocrit 40, Mean Corpuscular Volume 88, Mean Corpuscular Hemoglobin 29, Mean Corpuscular Hemoglobin Concent 33, Red Cell Distribution Width 14.9H, Platelet Count 304, Mean Platelet Volume 10.3, Neutrophils (%) (Auto) 57, Lymphocytes (%) (Auto) 32, Monocytes (%) (Auto) 9, Eosinophils (%) (Auto) 2, Basophils (%) (Auto) 1, N eutrophils # (Auto) 3.0, Lymphocytes # (Auto) 1.7, Monocytes # (Auto) 0.4, Eosinophils # (Auto) 0.1, Basophils # (Auto) 0.0, Sodium Level 141, Potassium Level 3.9, Chloride Level 109H, Carbon Dioxide Level 23, Anion Gap 9, Blood Urea Nitrogen 14, Creatinine 0.76, Estimat Glomerular Filtration Rate > 60, BUN/Creatinine Ratio 18, Glucose Level 92, Calcium Level 9.5, Corrected Calcium 9.7, Total Bilirubin 0.4, Aspartate Amino Transf (AST/SGOT) 13, Alanine Aminotransferase (ALT/SGPT) 11, Alkaline Phosphatase 60, Total Protein 5.9L, Albumin 3.8, Triglycerides Level 80, Cholesterol Level 232H, LDL Cholesterol Direct 140H, VLDL Cholesterol 16, HDL Cholesterol 79H Physical Exam Physical Exam Vital Signs Vital Signs - First Documented 04/22/20 09:47 Temp 36.4 Pulse 75 Resp 16 B/P (MAP) 171/94 (119) Pulse Ox 99 O2 Delivery Room Air Capillary Refill : Less Than 3 Seconds Height, Weight, BMI Height: '" Weight: lbs. oz. kg; 21.47 BMI Method: General Appearance: No Apparent Distress, WD/WN Eyes: Right Eye Normal Inspection, Right Eye PERRL HEENT: PERRL/EOMI, TMs Normal, Normal ENT Inspection, Pharynx Normal Neck: Normal Inspection Respiratory: Lungs Clear, Normal Breath Sounds, No Accessory Muscle Use, No R espiratory Distress Cardiovascular: Regular Rate, Rhythm, No Edema, No Murmur Gastrointestinal: Normal Bowel Sounds, No Organomegaly, No Pulsatile Mass, Non Tender, Soft Back: Normal Inspection, No CVA Tenderness, No Vertebral Tenderness Extremity: Normal Inspection, Non Tender, No Pedal Edema Neurologic/Psychiatric: Alert, Oriented x3, No Motor/Sensory Deficits, Normal Mood/Affect, mortgage loan officer originator II-XII Norm as Tested, Other (normal gait with ambulation. Reports some mild disequilibrium with ambulation. Normal finger to nose and mike l to olea. Very slight nystagmus with left sided gaze. [employer]-Hallpike negative.) Skin: Normal Color, Warm/Dry Lymphatic: No Adenopathy A/P-Cardiology Admission Diagnosis Dizziness HTN HLP Assessment/Plan Dizziness, decribes as spinning sensation, likely vertigo, now improved. CT Head demonstrated tiny 5mm hypodensity within right parietal lobe, questionably related to tiny age-indeterminate lacunar infarct. MRI done this morning pending. I will evaluate 2D Echo. HTN- SBP 170's in the ER. Blood pressure better today with SBP 130's-140's. Will have patient monitor BP at home. HLP- poorly controlled, I will start patient on Lipitor 10mg daily. Thank you for allowing us to participate in the management of Ms. Kearns. This is Arlin Arevalo PA-C, as a scribe for Dr. Scott. Patient was seen and evaluated with Arlin, examination performed, management plan was discussed, agree with the current scribed note, I made few changes to the note using Italic font Patient was seen at bedside, feeling better, no further vertigo reported, had a full recovery CT scan showed small lacunar infarct in the parietal lobe, MRI is pending Although she was hypertensive initially, blood pressure is better. Continue to monitor blood pressure will consider starting low-dose beta blockers if needed Start on Lipitor 10 mg daily for hyperlipidemia and monitor tolerance and response Carotid ultrasound showed mild nonobstructive disease, continue to monitor Arrange for follow-up as an outpatient Clinical Quality Measures DVT/VTE Risk/Contraindication: Risk Factor Score Per Nursin RFS Level Per Nursing on Admit: 2=Moderate ARLIN RUGGIERO Apr 23, 2020 11:05 MARIOLA SCOTT MD Apr 23, 2020 11:22
[2020-04-23] MEDS ORDERED: ATOR10TA PO (11:48)
--- NOTE | 2020-04-23 11:51 | NUR ---
CALLED DR DOMINGO TO CLARIFY DISCHARGE MEDICATIONS. LIPITOR SHOULD BE 10 MG PO DAILY AT HS INSTEAD OF 40 MG PO DAILY HS. PRESCRIPTION CHANGED AND RE-TRANSMITTED TO PHARMACY.
[2020-04-23 12:05] VITALS: BP 149/88
== END 2020-04-23 12:05 | disposition home or self-care (01) ==
LOC: ER 09:33 → 4TH 13:25
PROVIDERS: ADMIT Internal Medicine; ATTEND Internal Medicine
DX: R42 Dizziness and giddiness (principal); R93.0 Abnormal findings on diagnostic imaging of skull and head, not elsewhere classified; E78.5 Hyperlipidemia, unspecified; I10 Essential (primary) hypertension; Z87.820 Personal history of traumatic brain injury; Z79.82 Long term (current) use of aspirin
CPT/HCPCS: 36415; 70496; 70498; 70551; 80053; 80061; 81000; 83735; 84443; 85007; 85025; 85027; 93306; 93880; G0378

== ENCOUNTER 2021-11-26 10:47 | Outpatient (CLI) | payer MEDICARE ==
[~2021-11-26] VITALS: Ht 162 cm; Wt 56.7 kg
[~2021-11-26 10:47] MED LIST: ASPI-808 PO; ATOR10TA PO; ATOR40TA PO
[2021-11-26 10:50] VITALS: BP 124/84
[2021-11-26] MEDS ORDERED: ONDANSETRON 4 MG/2 ML (SDV) Z0FRAN IV PRN (11:00)
[2021-11-26] MEDS ORDERED: EPINEPHrine INJECTION 1 MG/ML AMP IM PRN (11:00)
[2021-11-26] MEDS ORDERED: diphenhydrAMINE 50 MG/ML INJ (BENADRYL) IV PRN (11:00)
[2021-11-26] MEDS ORDERED: ACETAMINOPHEN 500 MG TAB (TYLENOL) PO PRN (11:00)
[2021-11-26] MEDS ORDERED: SOTROVIMAB 500 MG/NS 100 ML IVPB IV ONE ×2 (11:00)
[2021-11-26 12:30] VITALS: BP 128/75
== END 2021-11-26 12:40 ==
LOC: INFUSION 10:47
PROVIDERS: ATTEND Family Medicine
DX: U07.1 COVID-19 (principal)